=== PATIENT | male | born 1975 | race Caucasian/White ===

== ENCOUNTER → 2024-07-16 13:15 | Outpatient (BNVA) | payer BC, SELFPAY | PROVIDERS: PCP Internal Medicine; Visit Provider Internal Medicine | DX: M25.512 Pain in left shoulder (principal); N52.9 Male erectile dysfunction, unspecified; R35.89 Other polyuria; Z76.89 Persons encountering health services in other specified circumstances; Z13.0 Encounter for screening for diseases of the blood and blood-forming organs and certain disorders involving the immune mechanism; Z13.220 Encounter for screening for lipoid disorders | CPT/HCPCS: 96127 ==

== ENCOUNTER → 2024-07-16 13:15 | Outpatient (AMB) | payer BC, SELFPAY | END | disposition home or self-care (01) | PROVIDERS: PCP Internal Medicine; Visit Provider Internal Medicine ==

== ENCOUNTER 2024-08-28 07:41 | Outpatient (REF) | payer BC, SELFPAY ==
[2024-08-28 12:01] LABS: MANUAL DIFF FLAG NO
[2024-08-28 12:06] LABS: Basophils Percent Auto 0.9 % (0-2); Eosinophils Absolute Auto 0.1 X10*3/uL (0.0-0.4); Eosinophils Percent Auto 3.3 % (0-4); Hematocrit 44.2 % (42.0-52.0); Hemoglobin 15.4 g/dl (14.0-18.0); Imm Gran Abs Auto 0.01 X10*3/uL (0.00-0.03); Imm Gran Pct Auto 0.3 % (0.0-0.4); Lymphocytes Percent Auto 30.3 % (20-40); Mean Corpuscular HGB Conc 34.8 g/dl (31.0-36.0); Mean Corpuscular Hemoglobin 30.4 pg (27.0-33.0); Mean Corpuscular Volume 87.4 fL (80.0-98.0); Monocytes Absolute Auto 0.3 X10*3/uL (0.1-1.2); Monocytes Percent Auto 9.3 % (2-11); Neutrophils Absolute Auto 1.9 x10*3/uL (2.0-8.3); Neutrophils Percent Auto 55.9 % (45-73); Platelet Count 197 X10*3/uL (160-400); Red Blood Count 5.06 X10*6/uL (4.60-5.80); Red Cell Distribution Width 12.9 % (11.0-16.0); White Blood Count 3.3 X10*3/uL (4.8-10.8)
[2024-08-28 12:40] LABS: Alanine Aminotransferase 42 U/L (0-40); Albumin Level 4.5 g/dL (3.5-5.0); Alkaline Phosphatase 50 U/L (39-117); Anion Gap 10 (12-20); Aspartate Amino Transferase 26 U/L (5-37); Blood Urea Nitrogen 15 mg/dL (9-16); Calcium 9.6 mg/dL (8.4-10.2); Carbon Dioxide 26 mmol/L (22-29); Chloride 108 mmol/L (96-108); Cholesterol 201 mg/dL (<200); Estimated Glomerular Filt Rate > 60; Glucose Random 87 mg/dL (60-115); HDL Cholesterol 45 mg/dL (>40); LDL Cholesterol Calculated 135 mg/dL (<100); Potassium 4.5 mmol/L (3.3-5.1); Sodium 139 mmol/L (135-145); Total Protein 7.7 g/dL (6.5-8.0); Triglycerides 105 mg/dL (<150)
[2024-08-28 12:49] LABS: Estimated Average Glucose 91 mg/dL; Hemoglobin A1C 114.7646 umol/L; Hemoglobin A1c % 4.8 % (<6.0); Total Hemoglobin (HGBA1C) 4034.6625 umol/L
[2024-08-28 13:04] LABS: Prostate Specific Antigen 0.42 ng/mL (<0.05-4.0)
== END 2024-08-28 07:42 | disposition home or self-care (01) ==
LOC: HO.HMGCLDS 07:41
PROVIDERS: PCP Internal Medicine; Visit Provider Internal Medicine
DX: Z12.5 Encounter for screening for malignant neoplasm of prostate (principal); Z13.0 Encounter for screening for diseases of the blood and blood-forming organs and certain disorders involving the immune mechanism; Z13.1 Encounter for screening for diabetes mellitus; Z13.220 Encounter for screening for lipoid disorders; N52.9 Male erectile dysfunction, unspecified; M25.512 Pain in left shoulder; R35.89 Other polyuria; Z76.89 Persons encountering health services in other specified circumstances
CPT/HCPCS: 36415; 80053; 80061; 83036; 84153; 84402; 84403; 85025

== ENCOUNTER 2024-08-31 08:59 | Outpatient (REF) | payer BC, SELFPAY ==
--- NOTE | ~2024-08-31 | XR_ITS ---
EXAMINATION: XR SHOULDER 2 OR MORE VIEWS LEFT HISTORY: M25.519 - Pain in unspecified shoulder COMPARISON: There are no prior studies available for comparison. FINDINGS: Three views of the left shoulder are submitted. Osseous mineralization is normal. There is no fracture or dislocation. The glenohumeral and acromioclavicular joint spaces are preserved. The soft tissues are unremarkable. XR/XR shoulder LT min 2V IMPRESSION: Unremarkable examination of the left shoulder. Electronically signed by: Lavell Lomeli MD 09/01/2024 01:06 PM EDT
== END 2024-08-31 09:00 | disposition home or self-care (01) ==
LOC: HO.HOSX 08:59
PROVIDERS: Visit Provider Physician Assistant
DX: M75.42 Impingement syndrome of left shoulder (principal)
CPT/HCPCS: 73030

== ENCOUNTER 2024-08-31 13:37 | Outpatient (AMB) | payer BC, SELFPAY ==
--- NOTE | 2024-08-31 14:11 | MHC.OFFVIS ---
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 Patient reports that he has had ongoing shoulder pain for about a year now. He plays basketball frequently and believes that he injured the shoulder while playing. He has painful ROM, particularly above the head and behind the back movements. Patient mentions that he is feeling a little better today, with some pain on the anterior and lateral aspect of the shoulder. He states that he tried and failed Ibuprofen. 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 Augustine is a 49-year-old right-hand dominant male who presents to the office today for evaluation of left shoulder pain. He reports that the pain has been ongoing for over a year now. He originally injured his shoulder when he was throwing a ball and feels as though he hyperextended the left shoulder. After that he continued to have left shoulder pain but tried to give it time to see if the pain improved. He had difficulty with range of motion but has noticed some slight improvement since the injury. He has not had any treatment to the left shoulder to this date. He has tried and failed ibuprofen. [facility] Surgical History No pertinent past surgical history Family History Mother Breast cancer Maternal Grandfather Heart disease Lung cancer Paternal Grandfather Heart disease Other Substance use Social History Housing: House Patient Tobacco Use Status: Former Tobacco user (quit at 20) Years Smoked: 1 e-Cigarette/Vaping Use: Never Used Second Hand Smoke Exposure: No service: No Current occupational status: employed Current occupation: [employer] Current occupational exposures/hazards: Yes Cognitive needs: No Hearing needs: No Vision needs: Yes (reading glasses ) Review of Systems Const All systems reviewed & are unremarkable except as noted in HPI and below Physical Exam Const General: cooperative, healthy appearing and no acute distress Resp Effort & Inspection: normal respiratory effort and able to speak in complete sentences Cardio Rate: regular rate Peripheral pulses: Peripheral pulses 2+ throughout Skin Lesions: no lesions Rashes: no rashes Extrem Other: Left shoulder: Normal to inspection. No ecchymosis, erythema, or edema. Lacking roughly 10 degrees of forward flexion. Abduction to 90 degrees. External rotation to end range. Able to reach to back pocket. Negative cross-body reach. 4-5 strength with empty can. Negative drop arm. NVI. Assessment & Plan Assessment & Plan (1) Rotator cuff impingement syndrome of left shoulder: Code(s): M75.42 - Impingement syndrome of left shoulder Category: Medical Plan Mr. Augustine is a 49-year-old right-hand dominant male who presents to the office today for evaluation of left shoulder pain. He reports that the pain has been ongoing for over a year now. He originally injured his shoulder when he was throwing a ball and feels as though he hyperextended the left shoulder. After that he continued to have left shoulder pain but tried to give it time to see if the pain improved. He had difficulty with range of motion but has noticed some slight improvement since the injury. He has not had any treatment to the left shoulder to this date. He has tried and failed ibuprofen. While in the office today, we discussed the role of cortisone injection and physical therapy. We deferred on the cortisone injection at this time as the patient is not having much pain. He will be referred to physical therapy for the next 6 weeks. Should he continued to have pain the next step would be to evaluate the shoulder and surrounding structures with an MRI. He will follow up after physical therapy, sooner if needed. X-rays of the left shoulder which were obtained while in the office today and were reviewed by me, Silvia Damon PA-C, revealed no acute fracture dislocation. Orders: Orders PT Evaluation and Treatment Today M75.42 - Impingement syndrome of left shoulder XR shoulder LT min 2V Today M25.519 - Pain in unspecified shoulder Coding Level of Care Code New Pt Level 3 (48743) Diagnoses Rotator cuff impingement syndrome of left shoulder M75.42
== END 2024-08-31 14:40 | disposition home or self-care (01) ==
PROVIDERS: PCP Internal Medicine; Visit Provider Physician Assistant
DX: M75.42 Impingement syndrome of left shoulder (principal)
CPT/HCPCS: 99203

== ENCOUNTER → 2024-08-31 13:41 | Outpatient (BNV) | payer BC, SELFPAY | PROVIDERS: Visit Provider Radiology Diagnostic Radiology | DX: M25.512 Pain in left shoulder (principal) | CPT/HCPCS: 73030 ==

== ENCOUNTER 2024-09-15 10:54 | Outpatient (AMB) | payer BC, SELFPAY ==
--- NOTE | 2024-09-15 11:01 | MHC.OFFVIS ---
Intake Visit Reasons: Polyuria Intake Note: Pt presents to the office today for a new patient visit for polyuria. Urology Meds:Sildenafil Blood thinners:None Allergies No Known Allergies Allergy (Verified 09/15/24 11:33) Medication List - Last Reconciled 09/15/24 by CHANTE Leiva ascorbate calcium (vitamin C) 500 mg PO DAILY multivitamin 1 tab PO DAILY sildenafil 100 mg PO DAILY PRN HPI Comments Details: John is a very pleasant 49-year-old male patient of Dr. Britni Rodarte. He presents to the office today as a new patient for ongoing lower urinary tract symptoms he has been experiencing. In discussion with the patient today he reports noting over the last few months to be having issues with nocturia, urinary urgency, and urinary frequency. He reports having followed up with his PCP at which time recommendations were made for urology referral for further assessment evaluation. He reports having episodes of nocturia 1-3 times per night. He does endorse to drinking approximately 40-60 oz of coffee daily. We did discussed potential causes for lower urinary tract symptoms patient was experiencing as well as further treatment options and risks and benefits of these treatment options. He denies hematuria, dysuria, foul smelling urine, changes to urinary stream, flank pain, fever, and or chills. In office urinalysis results reviewed with the patient today. When asked he does deny any previous history of sleep apnea however does endorse snoring and fatigue upon wakening. We discussed correlation of nocturia in potential sleep apnea. We discussed bladder triggers/irritants. We also discussed potential near future in office cystoscopy and or urodynamics for further assessment evaluation. He otherwise offers no other issues or concerns at this time. In review of patient's chart it appears PSA has been ordered and performed 08/31 0.4. He denies any known family history of prostate cancer. [facility] Surgical History No pertinent past surgical history Family History Mother Breast cancer Maternal Grandfather Heart disease Lung cancer Paternal Grandfather Heart disease Other Substance use Social History Housing: House Patient Tobacco Use Status: Former Tobacco user (quit at 20) Years Smoked: 1 e-Cigarette/Vaping Use: Never Used Second Hand Smoke Exposure: No service: No Current occupational status: employed Current occupation: [employer] Current occupational exposures/hazards: Yes Cognitive needs: No Hearing needs: No Vision needs: Yes (reading glasses ) Review of Systems Const All systems reviewed & are unremarkable except as noted in HPI and below Physical Exam Const General: cooperative, healthy appearing, comfortable, no acute distress, well developed, alert and awake Orientation/consciousness: patient oriented x3 Limitations: no limitations HEENT Head: Yes normal to inspection, Yes normocephalic and Yes atraumatic Ears: hearing grossly normal bilaterally Eyes General: appearance normal, both eyes and all related structures Neck Neck: Yes normal visual inspection and Yes trachea midline Chest Chest palpation & inspection: normal inspection of the chest Resp Effort & Inspection: normal respiratory effort and able to speak in complete sentences Cardio Rate: regular rate GI Inspection: Yes normal to inspection General: Yes no CVA tenderness Back/Spine/Pelvis Back: no CVA tenderness Skin General skin exam: no rashes or lesions noted Neuro General: patient oriented x3 Extrem General: Yes normal to inspection Psych Appearance: grossly normal and well kempt Mental Status: mental status grossly normal Speech and movement: Normal speech and movement present and Clear speech present Affect: normal affect Attitude: cooperative Thought process: Normal thought process present Thought content: Normal thought content present Insight: Fair insight present (Psych) Judgement: Fair judgement present (Psych) Results AMB Urinalysis, Automated UA Leukoctes 0 Ewa/uL Last Edit by Casie Lucero CMA on 09/15/24 11:47 UA Nitrite Negative Last Edit by Casie Lucero CMA on 09/15/24 11:47 UA Urobilinogen 0.2 mg/dL Last Edit by Casie Lucero CMA on 09/15/24 11:47 UA Protein 0 mg/dL Last Edit by Casie Lucero CMA on 09/15/24 11:47 UA pH 7.0 Last Edit by Casie Lucero CMA on 09/15/24 11:47 UA Blood 0 Jensen/uL Last Edit by Casie Lucero CMA on 09/15/24 11:47 UA Specific [place] 1.005 Last Edit by Casie Lucero CMA on 09/15/24 11:47 UA Ketone Negative Last Edit by Casie Lucero CMA on 09/15/24 11:47 UA Bilirubin 0 mg/dL Last Edit by Casie Lucero CMA on 09/15/24 11:47 UA Glucose 0 mg/dL Last Edit by Casie Lucero CMA on 09/15/24 11:47 Results Reviewed Results Reviewed: Laboratory Last Values Urine pH (Auto) 7.0 09/15/24 11:46 Specific [place] (Auto) 1.005 09/15/24 11:46 Urine Protein (Auto) 0 mg/dL 09/15/24 11:46 Glucose (UA)(Auto) 0 mg/dL 09/15/24 11:46 Urine Ketones (Auto) Negative 09/15/24 11:46 Urine Blood (Auto) 0 Jensen/uL 09/15/24 11:46 Urine Nitrite (Auto) Negative 09/15/24 11:46 Urine Bilirubin (Auto) 0 mg/dL 09/15/24 11:46 Urine Urobilinogen (Auto) 0.2 mg/dL 09/15/24 11:46 Leukocyte Esterase (Auto) 0 Ewa/uL 09/15/24 11:46 Assessment & Plan Assessment & Plan (1) Nocturia: Code(s): R35.1 - Nocturia Category: Medical (2) Lower urinary tract symptoms: Code(s): R39.9 - Unspecified symptoms and signs involving the genitourinary system Category: Medical Plan In office urinalysis results reviewed with the patient today; as noted above. Recent PSA results reviewed with the patient today; as noted above. Will obtain retroperitoneal ultrasound for further assessment evaluation. We discussed bladder triggers/irritants. We discussed potential causes of lower urinary tract symptoms patient was experiencing as well as further treatment options and risks and benefits of these treatment options. Information provided regarding bladder diary. Will attempt to obtain home sleep study. Follow-up in 1-3 months with imaging and PVR; or sooner with any issues, concerns, and or questions. Orders: Orders US retroperitoneal comp Today R35.1 - Nocturia, R39.9 - Unspecified symptoms and signs involving the genitourinary system AMB Urinalysis Automated Today R39.9 - Unspecified symptoms and signs involving the genitourinary system RT home sleep study Today R06.83 - Snoring, R35.1 - Nocturia, R53.83 - Other fatigue Patient Instructions: The patient had an opportunity to ask questions regarding the treatment plan. All questions were answered. Physical exam, labs, and imaging were discussed and reviewed in detail. As well as risks, benefits, and discussion of treatment choices. No major barriers to understanding were identified. The patient expressed understanding and agreement with the above treatment plan. The patient was made aware they should contact our office by phone for worsening of their current condition, the appearance of new symptoms, or with any questions or concerns. Compliance is encouraged with any medications and follow up testing that is ordered. It is a privilege to be allowed the opportunity to participate in? your urological care.? Again, if you have any questions or concerns If you have any questions or concerns please do not hesitate to contact me. The office is [phone]. This note is constructed using voice recognition software. While every effort has been made to ensure accuracy clerical administrative assistant errors may have been included. Yours sincerely, CHANTE Leiva Coding Level of Care Code New Pt Level 3 (36657) Diagnoses Nocturia R35.1 Lower urinary tract symptoms R39.9
== END 2024-09-15 11:40 | disposition home or self-care (01) ==
LOC: HO.HUSH 10:55
PROVIDERS: Visit Provider Nurse Practitioner Family
DX: R35.1 Nocturia (principal); R39.9 Unspecified symptoms and signs involving the genitourinary system
CPT/HCPCS: 99203

== ENCOUNTER → 2024-09-15 10:54 | Outpatient (BNVA) | payer BC, SELFPAY | PROVIDERS: Visit Provider Nurse Practitioner Family | DX: R35.1 Nocturia (principal); R39.9 Unspecified symptoms and signs involving the genitourinary system | CPT/HCPCS: 81003 ==

== ENCOUNTER 2024-12-08 15:35 | Outpatient (REF) | payer BC, SELFPAY ==
--- NOTE | ~2024-12-08 | US_ITS ---
CLINICAL HISTORY: R35.1 - Nocturia US retroperitoneum Comparison: None Findings: Right kidney normal size and echotexture, 11.0 cm length. No hydronephrosis, mass or calculus. Normal color flow. Left kidney normal size and echotexture, 11.7 cm in length. No hydronephrosis, mass or calculus. Normal color flow. Urinary bladder is normal. Prevoid volume 140 mL. Postvoid volume 3 mL, within normal range. Ureteral jets are visualized bilaterally Prostate measures 3.5 x 3.2 x 4.7 cm, 28 mL. Impression: Normal exam. This document has been electronically signed by: Nneka Siegel MD on 12/09/2024 14:47:48
== END 2024-12-08 15:36 | disposition home or self-care (01) ==
LOC: HO.US 15:35
PROVIDERS: Visit Provider Nurse Practitioner Family
DX: R35.1 Nocturia (principal); R39.9 Unspecified symptoms and signs involving the genitourinary system
CPT/HCPCS: 76770

== ENCOUNTER → 2024-12-08 15:37 | Outpatient (BNV) | payer BC, SELFPAY | PROVIDERS: Visit Provider Radiology Diagnostic Radiology | DX: R35.1 Nocturia (principal) | CPT/HCPCS: 76770 ==

== ENCOUNTER 2024-12-15 07:35 | Outpatient (AMB) | payer BC, SELFPAY ==
--- NOTE | 2024-12-15 07:44 | A.OFFVIS_ITS ---
Intake Visit Reasons: 3m/US/PSA(pending 12/08) Intake Note: Patient presents today for follow up on: nocturia, ultrasound and psa lab results Imaging Completed: 12/08/24 PSA: 0.42; Testosterone: 573 Urology Meds:Sildenafil Blood thinners:None PVR: 0ml's Log Manager Required: No Accompanied by: Self / Same As Patient Allergies No Known Allergies Allergy (Verified 12/15/24 07:59) Medication List - Last Reconciled 12/15/24 by CHANTE Leiva ascorbate calcium (vitamin C) 500 mg PO DAILY multivitamin 1 tab PO DAILY sildenafil 100 mg PO DAILY PRN HPI Comments Details: John is a very pleasant 49-year-old male patient of Dr. Britni Rodarte. He presents to the office today for follow-up. Of note, patient was seen approximately 3 months ago as a new patient for ongoing lower urinary tract symptoms at which time a retroperitoneal ultrasound was ordered for further assessment evaluation and recommendations were made for bladder diary. In discussion with the patient today he reports he continues with episodes of nocturia as well as urinary urgency and frequency. Bladder diary was reviewed. It appears patient with incomplete bladder emptying typically in the morning as he utilizes the bathroom 2-3 times within a 1-1-1/2 hour time span. A home sleep study was ordered however not yet performed and he plans on doing so. Retroperitoneal ultrasound 12/31 notes bilateral kidneys are normal in size and echotexture. No hydronephrosis, masses, or renal calculi noted. The urinary bladder is normal. Prostate measures approximately 28 mL. PSA: 08/31 0.4 Testosterone 08/31 573 He otherwise denies incontinence, hematuria, dysuria, foul smelling urine, changes to urinary stream, flank pain, fever, and or chills. We did discussed potential causes of lower urinary tract symptoms patient is experiencing as well as lifestyle modifications such as double voiding to assist with bladder emptying. In office urinalysis results reviewed with the patient today. PVR 0 mL. All questions were answered. We also discussed potential near future in office cystoscopy and or urodynamics for further assessment evaluation. He otherwise offers no other issues or concerns at this time. [facility] Surgical History No pertinent past surgical history Family History Mother Breast cancer Maternal Grandfather Heart disease Lung cancer Paternal Grandfather Heart disease Other Substance use Social History Housing: House Patient Tobacco Use Status: Former Tobacco user (quit at 20) Years Smoked: 1 e-Cigarette/Vaping Use: Never Used Second Hand Smoke Exposure: No service: No Current occupational status: employed Current occupation: [employer] Current occupational exposures/hazards: Yes Cognitive needs: No Hearing needs: No Vision needs: Yes (reading glasses ) Review of Systems Const All systems reviewed & are unremarkable except as noted in HPI and below Physical Exam Const General: cooperative, healthy appearing, comfortable, no acute distress, well developed, alert and awake Orientation/consciousness: patient oriented x3 Limitations: no limitations HEENT Head: Yes normal to inspection, Yes normocephalic and Yes atraumatic Ears: hearing grossly normal bilaterally Eyes General: appearance normal, both eyes and all related structures Neck Neck: Yes normal visual inspection and Yes trachea midline Chest Chest palpation & inspection: normal inspection of the chest Resp Effort & Inspection: normal respiratory effort and able to speak in complete sentences Cardio Rate: regular rate GI Inspection: Yes normal to inspection General: Yes no CVA tenderness Back/Spine/Pelvis Back: no CVA tenderness Skin General skin exam: no rashes or lesions noted Neuro General: patient oriented x3 Extrem General: Yes normal to inspection Psych Appearance: grossly normal and well kempt Mental Status: mental status grossly normal Speech and movement: Normal speech and movement present and Clear speech present Affect: normal affect Attitude: cooperative Thought process: Normal thought process present Thought content: Normal thought content present Insight: Fair insight present (Psych) Judgement: Fair judgement present (Psych) Office Procedures Post Void Residual Post Residual Void Post Void Residual (PVR): 0 [id number] Void Residual by ultrasound Results AMB Urinalysis, Automated UA Leukoctes 0 Ewa/uL Last Edit by Niru Monicahussain, [facility] on 12/15/24 08:00 UA Nitrite Last Edit by Niru Anderson, [facility] on 12/15/24 08:00 UA Urobilinogen 0.2 mg/dL Last Edit by Niru Anderson, [facility] on 12/15/24 08:0 0 UA Protein 0 mg/dL Last Edit by Niru Anderson, [facility] on 12/15/24 08:00 UA pH 7.0 Last Edit by Niru Anderson, [facility] on 12/15/24 08:00 UA Blood 0 Jensen/uL Last Edit by Niru [facility], [facility] on 12/15/24 08:00 UA Specific [place] 1.010 Last Edit by Niru Anderson, [facility] on 12/15/24 08: 00 UA Ketone Last Edit by Niru Anderson, [facility] on 12/15/24 08:00 UA Bilirubin 0 mg/dL Last Edit by Niru Anderson, [facility] on 12/15/24 08:00 UA Glucose 0 mg/dL Last Edit by Niru Anderson, [facility] on 12/15/24 08:00 Results Reviewed Results Reviewed: Laboratory Last Values Urine pH (Auto) 7.0 12/15/24 07:59 Specific [place] (Auto) 1.010 12/15/24 07:59 Urine Protein (Auto) 0 mg/dL 12/15/24 07:59 Glucose (UA)(Auto) 0 mg/dL 12/15/24 07:59 Urine Blood (Auto) 0 Jensen/uL 12/15/24 07:59 Urine Bilirubin (Auto) 0 mg/dL 12/15/24 07:59 Urine Urobilinogen (Auto) 0.2 mg/dL 12/15/24 07:59 Leukocyte Esterase (Auto) 0 Ewa/uL 12/15/24 07:59 Date of Service: 12/08/24 Procedure(s): US retroperitoneal comp Findings: Right kidney normal size and echotexture, 11.0 cm length. No hydronephrosis, mass or calculus. Normal color flow. Left kidney normal size and echotexture, 11.7 cm in length. No hydronephrosis, mass or calculus. Normal color flow. Urinary bladder is normal. Prevoid volume 140 mL. Postvoid volume 3 mL, within normal range. Ureteral jets are visualized bilaterally Prostate measures 3.5 x 3.2 x 4.7 cm, 28 mL. Impression: Normal exam. Assessment & Plan Assessment & Plan (1) Erectile dysfunction: Code(s): N52.9 - Male erectile dysfunction, unspecified Category: Medical (2) Lower urinary tract symptoms: Code(s): R39.9 - Unspecified symptoms and signs involving the genitourinary system Category: Medical Plan In office urinalysis results with the patient today; as noted above. PVR 0 mL. Recent PSA results and testosterone results reviewed with the patient today; as noted above. Recent retroperitoneal ultrasound results reviewed with the patient today; as noted above. We discussed attempting to double void to assist with bladder emptying. Bladder diary was reviewed and entirety All questions were answered. We did discussed potential causes of lower urinary tract symptoms patient is experiencing as well as further treatment options and risks and benefits of these treatment options. Patient will plan to perform sleep study Follow-up in 1-3 months with sleep study to be completed prior or sooner with any issues, concerns, and or questions. Orders: Orders AMB Urinalysis Automated Today Z13.9 - Encounter for screening, unspecified AMB Post Void Residual by ultrasound Today R39.9 - Unspecified symptoms and signs involving the genitourinary system Patient Instructions: The patient had an opportunity to ask questions regarding the treatment plan. All questions were answered. Physical exam, labs, and imaging were discussed and reviewed in detail. As well as risks, benefits, and discussion of treatment choices. No major barriers to understanding were identified. The patient expressed understanding and agreement with the above treatment plan. The patient was made aware they should contact our office by phone for worsening of their current condition, the appearance of new symptoms, or with any questions or concerns. Compliance is encouraged with any medications and follow up testing that is ordered. It is a privilege to be allowed the opportunity to participate in? your urological care.? Again, if you have any questions or concerns If you have any questions or concerns please do not hesitate to contact me. The office is [phone]. This note is constructed using voice recognition software. While every effort has been made to ensure accuracy vulnerability researcher errors may have been included. Yours sincerely, CHANTE Leiva Coding Level of Care Code Est Pt Level 3 (67123) Diagnoses Erectile dysfunction N52.9 Lower urinary tract symptoms R39.9 CPT Codes Post Residual Void - PVR CPT Code: 42302-Qxvp Void Residual by ultrasound ([id number])
== END 2024-12-15 08:23 | disposition home or self-care (01) ==
LOC: HO.HUSH 07:36
PROVIDERS: Visit Provider Nurse Practitioner Family
DX: N52.9 Male erectile dysfunction, unspecified (principal); R39.9 Unspecified symptoms and signs involving the genitourinary system; Z13.9 Encounter for screening, unspecified
CPT/HCPCS: 99213

== ENCOUNTER → 2024-12-15 07:35 | Outpatient (BNVA) | payer BC, SELFPAY | PROVIDERS: Visit Provider Nurse Practitioner Family | DX: N52.9 Male erectile dysfunction, unspecified (principal); R39.9 Unspecified symptoms and signs involving the genitourinary system | CPT/HCPCS: 51798; 81003 ==

== ENCOUNTER 2025-04-05 08:18 | Outpatient (AMB) | payer BC, SELFPAY ==
--- NOTE | 2025-04-05 08:22 | A.OFFPC_ITS ---
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 Saw orthopedics. Has not yet been able to complete his physical therapy. Plays baseball with his son frequently. Thinks he injured it while playing baseball. Thought it would subside but hasn't. Does have full range of motion. Hard to lift past 90 degree. Difficult to put behind back Urology: Polyuria. ED. Following with [facility] [place]. Upcoming sleep study Lots of sun exposure. Multiple nevi Cologuard UTD ROS CONSTITUTIONAL: Denies weight loss, fever and chills. HEENT: Denies changes in vision and hearing. RESPIRATORY: Denies SOB and cough. CV: Denies palpitations and CP GI: Denies abdominal pain, nausea, vomiting and diarrhea. : Denies dysuria and urinary frequency. MSK: Denies new myalgia and joint pain. SKIN: Denies rash and pruritus. NEUROLOGICAL: Denies headache PSYCHIATRIC: Denies recent changes in mood. PHYSICAL EXAM: GENERAL: Alert and oriented x 3. NAD EYES: EOMI. Anicteric. HENT: Moist mucous membranes. No scleral icterus. No cervical lymphadenopathy. LUNGS: Clear to auscultation bilaterally. CARDIOVASCULAR: Regular rate and rhythm. No murmur. No JVD. ABDOMEN: Soft, non-tender +bs EXTREMITIES: No edema. Non-tender. SKIN: No rashes or lesions. Warm. NEUROLOGIC: No focal neurological deficits. CN II-XII grossly intact PSYCHIATRIC: Cooperative. Appropriate mood and affect PFSH Surgical History No pertinent past surgical history Family History Mother Breast cancer Maternal Grandfather Heart disease Lung cancer Paternal Grandfather Heart disease Other Substance use Social History Housing: House Alcohol intake: current Patient Tobacco Use Status: Former Tobacco user (quit at 20) Years Smoked: 1 e-Cigarette/Vaping Use: Never Used Second Hand Smoke Exposure: No Use of substances other than those prescribed or required for medical reasons: No service: No Current occupational status: employed Current occupation: Vocation Current occupational exposures/hazards: Yes Cognitive needs: No Hearing needs: No Vision needs: Yes (reading glasses ) Questionnaire Thrive Questionnaire Date Thrive assessed: 07/10/24 I am a: Patient What is your living situation today?: I have a steady place to live Within the past 12 months, did the food you bought not last and you didn't have the money to get more?: Never true Within the past 12 months, did you worry whether your food would run out before you got money to buy more?: Never true Do you have trouble paying for medicines?: No Do you have trouble getting transportation to medical appointments?: No Do you have trouble paying your heating and electricity bill?: No Do you have trouble taking care of your child, family member or friend?: No Do you have trouble with day-to-day activities such as bathing, preparing meals, shopping, managing finances, etc.?: No Are you currently unemployed and looking for a job?: No Are you interested in more education?: No Please select the resources that you would like help with: None Currently or been in a relationship where the following occur: No concerns reported THRIVE Score: 0 AUDIT C Alcohol Use Questionnaire (AUDIT-C) 1. How often do you have a drink containing alcohol?: 2-4 times a month 2. How many drinks containing alcohol do you have on a typical day when you are drinking?: 1 or 2 3. How often do you have six or more drinks on one occasion?: Never Total Score: 2 ARLEEN-7 AMB Questionnaire ARLEEN-7 Date ARLEEN - 7 assessed: 07/16/24 Source: Developed by Drs. Lavell Duncan, Rachelle Martínez, Ney Ornelas and colleagues, with an educational abby from [employer]. Physical exam (Primary Care) Vital Signs: Last Vital Signs Temp 98 F 04/05/25 08:24 Pulse 64 04/05/25 08:24 Resp 14 04/05/25 08:24 BP 122/78 04/05/25 08:24 Pulse Ox 98 04/05/25 08:24 Oxygen Delivery Method Room Air 04/05/25 08:24 BMI result Body Mass Index 31.4 Tobacco/Smoking Status: Tobacco use Status Tobacco use date assessed 04/05/25 04/05/25 08:27 Patient Tobacco Use Status Former Tobacco user (quit at 04/05/25 08:27 20) e-Cigarette/Vaping Use Never Used 04/05/25 08:27 Thrive Assessment: Date of Thrive Assessment Date Thrive assessed 07/10/24 04/05/25 08:23 Currently or been in a relationship where the following occur: No concerns reported Coding Level of Care Code Est Pt Prev Care 40-64y(68917) Diagnoses Physical exam Z00.00 Polyuria R35.89 Left shoulder pain, unspecified chronicity M25.512 Chronicity: unspecified Multiple nevi D22.9 Assessment & Plan Assessment & Plan (1) Physical exam: Code(s): Z00.00 - Encounter for general adult medical examination without abnormal findings (2) Polyuria: Code(s): R35.89 - Other polyuria Category: Medical (3) Left shoulder pain: Code(s): M25.512 - Pain in left shoulder Category: Medical Qualifiers: Chronicity: unspecified Qualified Code(s): M25.512 - Pain in left shoulder (4) Multiple nevi: Code(s): D22.9 - Melanocytic nevi, unspecified Category: Medical Plan 50 year old male presenting for CPE Interval history reviewed Preventive measures for age discussed Tdap, flu vaccine Labs are up to date Referral to dermatology Orders: Orders TDaP Immunization Today Z23 - Encounter for immunization PT Evaluation and Treatment Today M75.42 - Impingement syndrome of left shoulder Influenza 1170-5071 Immunization Today Z23 - Encounter for immunization Referrals Dermatology Referral D22.9 - Melanocytic nevi, unspecified Medications: New Fluarix (PF) (flu vac ts (6mos up)-PF) 0.5 mL IM ONCE 0.5 mL 0RF NS Z23 - Encounter for immunization Boostrix Tdap (diphth,pertus(acell),tetanus) 0.5 mL IM ONCE 0.5 mL 0RF NS Z23 - Encounter for immunization
[2025-04-05 08:24] VITALS: BP 122/78; PULSE 64; RESP 14; TEMP 36.6; O2SAT 98; BMI 31.4
== END 2025-04-05 09:17 | disposition home or self-care (01) ==
LOC: HO.HMCFM 08:19
PROVIDERS: PCP Internal Medicine; Visit Provider Internal Medicine
DX: Z00.00 Encounter for general adult medical examination without abnormal findings (principal); R35.89 Other polyuria; M25.512 Pain in left shoulder; D22.9 Melanocytic nevi, unspecified; Z23 Encounter for immunization

== ENCOUNTER → 2025-04-05 08:18 | Outpatient (BNVA) | payer BC, SELFPAY | PROVIDERS: PCP Internal Medicine; Visit Provider Internal Medicine | DX: Z00.00 Encounter for general adult medical examination without abnormal findings (principal); Z23 Encounter for immunization; R35.89 Other polyuria; M25.512 Pain in left shoulder; M75.42 Impingement syndrome of left shoulder; D22.9 Melanocytic nevi, unspecified | CPT/HCPCS: 90471; 90472; 90656; 90715 ==

== ENCOUNTER → 2025-04-06 09:19 | Outpatient (REF) | payer BC, SELFPAY | LOC: HO.SL 09:19 | PROVIDERS: PCP Internal Medicine; Visit Provider Nurse Practitioner Family | DX: R06.83 Snoring (principal); R53.83 Other fatigue; R35.1 Nocturia | CPT/HCPCS: 95806 ==

== ENCOUNTER → 2025-04-06 09:26 | Outpatient (BNV) | payer BC, SELFPAY | PROVIDERS: PCP Internal Medicine; Visit Provider Psychiatry & Neurology Neurology | DX: R06.83 Snoring (principal) | CPT/HCPCS: 95806 ==

== ENCOUNTER 2025-05-12 07:24 | Outpatient (AMB) | payer BC, SELFPAY ==
--- NOTE | 2025-05-12 07:28 | A.OFFVIS_ITS ---
Intake Visit Reasons: sleep study follow up Intake Note: Patient presents today for follow up for sleep study results labs done : 12/08/24 PSA: 0.42; Testosterone: 573 Urology Meds:Sildenafil Blood thinners:None LAST PVR: 0ml's Toll Service Observer Required: No Accompanied by: Self / Same As Patient Allergies No Known Allergies Allergy (Verified 05/12/25 07:54) Medication List - Last Reconciled 05/12/25 by CHANTE Leiva ascorbate calcium (vitamin C) 500 mg PO DAILY multivitamin 1 tab PO DAILY sildenafil 100 mg PO DAILY PRN HPI Comments Details: John is a very pleasant 50-year-old male patient of Dr. Britni Rodarte. He is being followed up on today via video telehealth for his ongoing lower urinary tract symptoms. In discussion with the patient today he reports since he has limited his caffeine intake as well as fluids 2-3 hours prior to bed he does feel episodes of nocturia have significantly improved. He reports he does continue to experience nocturia however describes these episodes as infrequent and manageable. During last office visit a sleep study was ordered and these results were reviewed and communicated with the patient today. 04/02 findings are consistent with a normal apnea index. Previous workup has also included a bladder diary as well as retroperitoneal ultrasound. These results are as follows: Bladder Diary: It appears patient with incomplete bladder emptying typically in the morning as he utilizes the bathroom 2-3 times within a 1-1-1/2 hour time Retroperitoneal ultrasound: 12/31 notes bilateral kidneys are normal in size and echotexture. No hydronephrosis, masses, or renal calculi noted. The urinary bladder is normal. Prostate measures approximately 28 mL. Labs are as follows: PSA: 08/31 0.4 Testosterone 08/31 573 He otherwise denies incontinence, hematuria, dysuria, foul smelling urine, changes to urinary stream, flank pain, fever, and or chills. We did discuss potential causes of lower urinary tract symptoms patient is/was experiencing as well as lifestyle modifications such as double voiding to assist with bladder emptying. All questions were answered. We also discussed potential near future in office cystoscopy and or urodynamics for further assessment evaluation if symptoms arise. He otherwise offers no other issues or concerns at this time. [facility] Surgical History No pertinent past surgical history Family History Mother Breast cancer Maternal Grandfather Heart disease Lung cancer Paternal Grandfather Heart disease Other Substance use Social History Housing: House Alcohol intake: current Patient Tobacco Use Status: Former Tobacco user (quit at 20) Years Smoked: 1 e-Cigarette/Vaping Use: Never Used Second Hand Smoke Exposure: No service: No Current occupational status: employed Current occupation: [employer] Current occupational exposures/hazards: Yes Cognitive needs: No Hearing needs: No Vision needs: Yes (reading glasses ) Review of Systems Const All systems reviewed & are unremarkable except as noted in HPI and below Physical Exam Const General: cooperative, healthy appearing, comfortable, no acute distress, alert and awake Orientation/consciousness: patient oriented x3 Resp Effort & Inspection: normal respiratory effort and able to speak in complete sentences Neuro General: patient oriented x3 Psych Appearance: grossly normal and well kempt Speech and movement: Clear speech present Affect: normal affect Attitude: cooperative Thought process: Normal thought process present Thought content: Normal thought content present Insight: Fair insight present (Psych) Judgement: Fair judgement present (Psych) Telehealth Telehealth Telehealth Platform: [facility] Location of provider rendering services: practice address Location of patient: address on file Patient Identification confirmed using: Name, : Yes Telehealth method: video Patient verbally consented to treatment: Yes Patient verbally consented to billing insurance company: Yes Patient informed of any privacy concerns related to visit: Yes Minutes spent on Phone/Video with Pt.: 20 Assessment & Plan Assessment & Plan (1) Lower urinary tract symptoms: Code(s): R39.9 - Unspecified symptoms and signs involving the genitourinary system Category: Medical (2) Nocturia: Code(s): R35.1 - Nocturia Category: Medical Plan Recent sleep study results reviewed with the patient today; as noted above. We did discussed potential causes of lower urinary tract symptoms patient was experiencing. We did review bladder triggers/irritants and the importance of lifestyle modifications to assist with lower urinary tract symptoms. He currently denies any bothersome urinary issues or concerns. He reports be happy with current voiding parameters. Will continue with surveillance monitoring. Will obtain PSA in 6 months. Follow-up in 6 months with PSA and PVR; or sooner with any issues, concerns, and or questions. Orders: Orders Prostate Specific Antigen 6 Months R35.1 - Nocturia, R39.9 - Unspecified symptoms and signs involving the genitourinary system Patient Instructions: The patient had an opportunity to ask questions regarding the treatment plan. All questions were answered. Physical exam, labs, and imaging were discussed and reviewed in detail. As well as risks, benefits, and discussion of treatment choices. No major barriers to understanding were identified. The patient expressed understanding and agreement with the above treatment plan. The patient was made aware they should contact our office by phone for worsening of their current condition, the appearance of new symptoms, or with any questions or concerns. Compliance is encouraged with any medications and follow up testing that is ordered. It is a privilege to be allowed the opportunity to participate in? your urological care.? Again, if you have any questions or concerns If you have any questions or concerns please do not hesitate to contact me. The office is [phone]. This note is constructed using voice recognition software. While every effort has been made to ensure accuracy tractor mechanic apprentice errors may have been included. Yours sincerely, CHANTE Leiva Coding Level of Care Code Tele Est Pt Level 3 (25810) Diagnoses Lower urinary tract symptoms R39.9 Nocturia R35.1
== END 2025-05-12 08:43 | disposition home or self-care (01) ==
LOC: HO.HUSH 07:24
PROVIDERS: PCP Internal Medicine; Visit Provider Nurse Practitioner Family
DX: R35.1 Nocturia (principal); R39.9 Unspecified symptoms and signs involving the genitourinary system
CPT/HCPCS: 99213